=== PATIENT | female | born 1950 | race Caucasian/White ===

== ENCOUNTER → 2025-07-10 14:08 | Outpatient (REF) | payer MEDICARE, OTHER, SELFPAY | LOC: RCS 14:08 | PROVIDERS: ATTENDING PHYSICIAN Internal Medicine Cardiovascular Disease; FAMILY PHYSICIAN Student in an Organized Health Care Education/Training Program | DX: I10 Essential (primary) hypertension (principal); I49.1 Atrial premature depolarization; I34.1 Nonrheumatic mitral (valve) prolapse | CPT/HCPCS: 93017; 93350 ==